=== PATIENT | female | born 1990 | race Caucasian/White ===

== ENCOUNTER 2016-12-12 13:24 | Outpatient (CLI) | payer OTHER ==
[~2016-12-12] VITALS: Ht 165.1 cm; Wt 122.4 kg
[~2016-12-12 13:24] MED LIST: BENTYL20 MG PO; CITRATE OF MAG296 ML PO; COLACE100 MG PO; FLAGYL500 MG PO; FLEXERIL10 MG PO; KEFLEX500 MG PO; MACROBID100 MG PO; MEDROL DOSEPAK4 MG PO; MOTRIN800 MG PO; Motrin PO; NAPROSYN500 MG PO; NORCO 5/3251 TABLET PO; PERCOCET 5/31 TABLET PO; PHENERGAN-CODE120 ML PO; PREFERA-OB P1 TABLET PO; PRENATAL TABLE1 EAC3 PO; PRILOSEC20 MG PO; PROZAC20 MG PO; PYRIDIUM100 MG PO; Percocet 5/325,Endoc PO; TOPIRAMATE25 MG PO; TYLENOL WITH C1 EACH PO; Tylenol Extra Streng PO; ZANTAC75 M1 PO; ZITHROMAX Z-PA250 MG PO; ZOFRAN4 MG PO; Zantac PO; ~No Medications
[2016-12-12 13:39] VITALS: BP 130/80
[2016-12-12] MEDS ORDERED: DIABETA5 MG PO (13:59)
[2016-12-12] MEDS ORDERED: UNISOM50 MG PO (13:59)
[2016-12-12] MEDS ORDERED: CLINDAMYCIN HC150 MG PO (14:00)
[2016-12-12] MEDS ORDERED: TYLENOL EXTRA500 MG PO (14:00)
[2016-12-12 14:03] VITALS: BP 132/61
[2016-12-12 15:19] VITALS: BP 134/77
== END 2016-12-12 16:25 | disposition home or self-care (01) ==
LOC: LDRP-OP 13:24 → 2WEST 13:25 → LDRP-OP 01-20 21:17
DX: O47.1 False labor at or after 37 completed weeks of gestation (principal); Z3A.37 37 weeks gestation of pregnancy; O99.213 Obesity complicating pregnancy, third trimester; E66.01 Morbid (severe) obesity due to excess calories; Z3A.41 41 weeks gestation of pregnancy; O24.415 Gestational diabetes mellitus in pregnancy, controlled by oral hypoglycemic drugs
CPT/HCPCS: 59025; G0378

== ENCOUNTER 2016-12-13 21:38 | Outpatient (CLI) | payer OTHER ==
[~2016-12-13 21:38] MED LIST changes: +CLINDAMYCIN HC150 MG PO; +DIABETA5 MG PO; +TYLENOL EXTRA500 MG PO; +UNISOM50 MG PO
[2016-12-13 22:03] VITALS: BP 115/69
== END 2016-12-13 23:50 | disposition home or self-care (01) ==
LOC: LDRP-OP 21:38 → 2WEST 21:42 → LDRP-OP 01-20 16:50
DX: O47.1 False labor at or after 37 completed weeks of gestation (principal); Z3A.39 39 weeks gestation of pregnancy
CPT/HCPCS: 59025; G0378

== ENCOUNTER 2016-12-16 14:21 | Outpatient (CLI) | payer OTHER ==
[~2016-12-16] VITALS: Ht 165.1 cm; Wt 123.0 kg
[2016-12-16 14:37] VITALS: BP 119/65
[2016-12-16 15:45] VITALS: BP 123/58
== END 2016-12-16 17:36 | disposition home or self-care (01) ==
LOC: LDRP-OP 14:21 → 2WEST 14:22 → LDRP-OP 01-20 02:08
DX: O47.1 False labor at or after 37 completed weeks of gestation (principal); Z3A.38 38 weeks gestation of pregnancy
CPT/HCPCS: 59025; G0378

== ENCOUNTER 2016-12-20 06:59 | Inpatient (IN) | payer OTHER ==
[~2016-12-20] VITALS: Ht 165.1 cm; Wt 122.7 kg
[2016-12-20] VITALS (21 sets, daily range): BP systolic 102–130; BP diastolic 57–79
[2016-12-20 09:03] LABS: EOSINOPHIL (%) 1.4 % (0-5); EOSINOPHIL COUNT 0.1 K/uL (0-0.3); HEMATOCRIT 30.2 % (36.0-46.0); IMMATURE GRANULOCYTE (%) 0.6 % (0.0-0.7); IMMATURE GRANULOCYTE COUNT 0.1 K/uL; INSTRUMENT ABS NEUTROPHIL CT 5.7 K/uL; LYMPHOCYTE COUNT 1.6 K/uL (1.0-2.8); MCH 23.2 PG (29.0-34.0); MCHC 30.8 G/DL (30.0-36.0); MCV 75.3 FL (83-99); MEAN PLAT.VOLUME 9.9 uM^3 (9.5-12.4); MONOCYTE (%) 6.9 % (3-12); MONOCYTE COUNT 0.6 K/uL (0-0.8); NEUTROPHIL (%) 70.6 % (45-76); NEUTROPHIL COUNT 5.7 K/uL (1.8-6.4); PLATELET COUNT 269 K/uL (156-360); RBC DIS.WIDTH-CV 15.5 % (11.8-14.6); RBC DIS.WIDTH-SD 42.4 % (39-53); RED BLOOD COUNT 4.01 M/uL (3.80-5.20); WHITE BLOOD COUNT 8.1 K/uL (4.1-10.2)
[2016-12-20 09:20] LABS: ANION GAP 6 MEQ/L (2-14); CHLORIDE 105 MEQ/L (99-109); POTASSIUM 4.4 MEQ/L (3.7-5.4); SAMPLE HEMOLYSIS CHECK 0; SAMPLE ICTERIC CHECK 0; SAMPLE LIPEMIA CHECK 0; SODIUM 133 MEQ/L (136-147); TOTAL BILIRUBIN 0.2 MG/DL (0.0-1.0)
[2016-12-20 09:25] LABS: ALKALINE PHOSPHATASE 213 IU/L (3-129); GFR ESTIMATE (CALCULATED) > 59 mL/min/; GLUCOSE 86 mg/dL (70-99); UREA NITROGEN (BUN) 13 mg/dL (9-23)
[2016-12-20] MEDS ORDERED: MOTRIN800 MG PO (20:12)
[2016-12-21 05:12] LABS: POINT-OF-CARE METER ID UU13113692
[2016-12-21 05:12] LABS: POINT-OF-CARE METER ID UU13113692
[2016-12-21 05:12] LABS: POINT-OF-CARE METER ID UU13113692
[2016-12-21 05:12] LABS: POINT-OF-CARE METER ID UU13113692
[2016-12-21 05:12] LABS: POINT-OF-CARE METER ID UU13113692
[2016-12-21 05:12] LABS: POINT-OF-CARE METER ID UU13113692
[2016-12-21 05:12] LABS: POINT-OF-CARE METER ID UU13113692
[2016-12-21 07:13] VITALS: BP 114/57
[2016-12-21 14:47] VITALS: BP 115/63
== END 2016-12-22 17:55 | disposition home or self-care (01) | DRG 775 ==
LOC: LDRP-OP 06:59 → 2WEST 07:00 → LDRP-OP 07:45 → 2WEST 19:57 → LDRP-OP 01-20 17:49
PROVIDERS: Nurse Practitioner; Obstetrics & Gynecology
PROC: 10E0XZZ Delivery of Products of Conception, External Approach (ICD-10-PCS; principal; 2016-12-20)
PROC: 10907ZC Drainage of Amniotic Fluid, Therapeutic from Products of Conception, Via Natural or Artificial Opening (ICD-10-PCS; principal; 2016-12-20)
PROC: 3E0S3CZ (ICD-10-PCS; principal; 2016-12-20)
PROC: 00HU33Z Insertion of Infusion Device into Spinal Canal, Percutaneous Approach (ICD-10-PCS; principal; 2016-12-20)
DX: O99.214 Obesity complicating childbirth (principal); O24.425 Gestational diabetes mellitus in childbirth, controlled by oral hypoglycemic drugs; E66.01 Morbid (severe) obesity due to excess calories; Z68.41 Body mass index [BMI] 40.0-44.9, adult; Z37.0 Single live birth; Z3A.39 39 weeks gestation of pregnancy; D64.9 Anemia, unspecified; F32.9 Major depressive disorder, single episode, unspecified; F41.9 Anxiety disorder, unspecified; O99.344 Other mental disorders complicating childbirth; O99.02 Anemia complicating childbirth
CPT/HCPCS: 80053; 82948; 85025; C1755; J1050; J3010; J7120

== ENCOUNTER 2017-05-16 15:10 | Emergency (ER) | payer OTHER ==
[~2017-05-16] VITALS: Ht 165.1 cm; Wt 122.0 kg
[2017-05-16 16:44] LABS: EOSINOPHIL (%) 3.2 % (0-5); EOSINOPHIL COUNT 0.2 K/uL (0-0.3); HEMATOCRIT 38.6 % (36.0-46.0); IMMATURE GRANULOCYTE (%) 0.5 % (0.0-0.7); INSTRUMENT ABS NEUTROPHIL CT 5.1 K/uL; LYMPHOCYTE COUNT 1.7 K/uL (1.0-2.8); MCH 25.2 PG (29.0-34.0); MCHC 31.6 G/DL (30.0-36.0); MCV 79.8 FL (83-99); MONOCYTE (%) 6.1 % (3-12); MONOCYTE COUNT 0.5 K/uL (0-0.8); NEUTROPHIL (%) 67.2 % (45-76); NEUTROPHIL COUNT 5.1 K/uL (1.8-6.4); PLATELET COUNT 215 K/uL (156-360); RBC DIS.WIDTH-CV 14.7 % (11.8-14.6); RBC DIS.WIDTH-SD 42.6 % (39-53); RED BLOOD COUNT 4.84 M/uL (3.80-5.20); WHITE BLOOD COUNT 7.6 K/uL (4.1-10.2)
[2017-05-16 16:54] LABS: CHLORIDE 109 mEq/L (99-109); POTASSIUM 4.6 mEq/L (3.7-5.4); SODIUM 141 mEq/L (136-147)
[2017-05-16 16:57] LABS: GLUCOSE 86 mg/dL (70-99)
[2017-05-16 16:58] LABS: ANION GAP 8 MEQ/L (2-14)
[2017-05-16 16:59] LABS: TOTAL BILIRUBIN 0.2 mg/dL (0.0-1.0)
[2017-05-16 17:00] LABS: ALKALINE PHOSPHATASE 139 IU/L (3-129); GFR ESTIMATE (CALCULATED) > 59 mL/min/
[2017-05-16 17:01] LABS: UREA NITROGEN (BUN) 13 mg/dL (9-23)
[2017-05-16 17:04] LABS: LIPASE 19 U/L (1.0-51.0)
[2017-05-16 17:09] LABS: QUANTITATIVE HCG < 4.0 MIU/ML
[2017-05-16] MEDS ORDERED: PEPCID20 MG PO (17:35)
[2017-05-16] MEDS ORDERED: CARAFATE1 GM PO (17:35)
[2017-05-16 17:58] VITALS: BP 131/79
== END 2017-05-16 17:59 | disposition home or self-care (01) ==
LOC: EME 15:10
PROVIDERS: Physician Assistant
DX: K21.9 Gastro-esophageal reflux disease without esophagitis (principal)
CPT/HCPCS: 80053; 83690; 84702; 85025; 99281; 99283